=== PATIENT | female | born 1995 | race Two or more races ===

== ENCOUNTER 2017-03-22 16:47 | Emergency (ER) | payer SELFPAY ==
[~2017-03-22] VITALS: Ht 157.5 cm; Wt 62.1 kg
[2017-03-22 17:14] VITALS: BP 120/67
[2017-03-22] MEDS ORDERED: HYDROCORTISONE ACETATE 25 MG SUPP.RECT PR STA (17:26)
[2017-03-22] MEDS ORDERED: DEXAMETHASONE SOD PHOS 20 MG/5 ML VIAL. IM ONE (17:30)
[2017-03-22] MEDS ORDERED: KETOROLAC TROMETHAMINE 60 MG/2 ML INJ. IM ONE (17:30)
[2017-03-22] MEDS ORDERED: LIDO30CR TP (18:24)
[2017-03-22] MEDS ORDERED: POLY17PO29 PO (18:24)
[2017-03-22] MEDS ORDERED: HYDR30CR61 TP (18:24)
--- NOTE | 2017-03-22 18:24 | PHYS DOC ---
Past Medical History Past Medical History: No Pertinent History Past Surgical History: No Surgical History Alcohol Use: None Drug Use: None Adult General Chief Complaint Chief Complaint: HEMORRHOIDS HPI HPI Patient is a 21 year old female with history of hemorrhoids who presents today with external hemorrhoids for 2 weeks. Patient also states she has history of constipation. She does not take anything for her constipation. Patient states she has tried multiple [id number] medications for hemorrhoids with no relief. Patient states once in a while when she wipes herself she notes blood on the toilet paper. Patient denies any abdominal pain. Review of Systems Review of Systems Constitutional: Denies fever or chills [] Eyes: Denies change in visual acuity, redness, or eye pain [] HENT: Denies nasal congestion or sore throat [] Respiratory: Denies cough or shortness of breath [] Cardiovascular: No additional information not addressed in HPI [] GI: Hemorrhoids and constipation : Denies dysuria or hematuria [] Musculoskeletal: Denies back pain or joint pain [] Integument: Denies rash or skin lesions [] Neurologic: Denies headache, focal weakness or sensory changes [] Endocrine: Denies polyuria or polydipsia [] Current Medications Current Medications Current Medications Medications (Trade) Dose Ordered Sig/George Start Time Stop Time Status Last Admin Dose Admin Dexamethasone Sodium Phosphate (Decadron) 10 mg 1X ONCE 03/22/17 17:30 03/22/17 17:31 DC 03/22/17 17:38 10 MG Hydrocortisone Acetate (Anucort-Hc) 25 mg 1X STAT 03/22/17 17:26 03/22/17 17:30 DC 03/22/17 17:37 25 MG Ketorolac Tromethamine (Toradol Im) 60 mg 1X ONCE 03/22/17 17:30 03/22/17 17:31 DC 03/22/17 17:38 60 MG Lidocaine HCl (Glydo (Lidocaine) Jelly) 1 vicente 1X ONCE 03/22/17 18:30 03/22/17 18:31 Allergies Allergies Allergies Coded Allergies Type Severity Reaction Last Updated Verified No Known Drug Allergies 03/22/17 No Physical Exam Physical Exam Constitutional: Well developed, well nourished, no acute distress, non-toxic appearance. [] HENT: Normocephalic, atraumatic, bilateral external ears normal, oropharynx moist, no oral exudates, nose normal. [] Eyes: PERRLA, EOMI, conjunctiva normal, no discharge. [] Neck: Normal range of motion, no tenderness, supple, no stridor. [] Cardiovascular:Heart rate regular rhythm, no murmur [] Lungs & Thorax: Bilateral breath sounds clear to auscultation [] Abdomen: Bowel sounds normal, soft, no tenderness, no masses, no pulsatile masses. [] Rectal exam External rectum has 2 peanut size nonthrombosed hemorrhoids. Unable to do internal rectal exam because patient is very uncomfortable. Skin: Warm, dry, no erythema, no rash. [] Back: No tenderness, no CVA tenderness. [] Extremities: No tenderness, no cyanosis, no clubbing, ROM intact, no edema. [] Neurologic: Alert and oriented X 3, normal motor function, normal sensory function, no focal deficits noted. [] Psychologic: Affect normal, judgement normal, mood normal. [] Current Patient Data Vital Signs Vital Signs Date Time Temp Pulse Resp B/P (MAP) Pulse Ox O2 Delivery O2 Flow Rate FiO2 03/22/17 17:14 97.7 77 18 98 Room Air 97.7 EKG EKG [] Radiology/Procedures Radiology/Procedures [] Course & Med Decision Making Course & Med Decision Making Pertinent Labs and Imaging studies reviewed. (See chart for details) Patient is in the ED with external hemorrhoids and constipation. She has tried over the counter medications for hemorrhoids with no relief. She was given Toradol and Decadron in the ED. She was informed we will not give her any narcotics because they increase the risk of constipation worsen hemorrhoids. She was discharged with lidocaine cream. She was also discharged with MiraLAX and educated on the relationship of constipation and hemorrhoids. The provided eye general surgeon for follow-up. She was provided return precautions and discharged in stable condition. Dragon Disclaimer Dragon Disclaimer This electronic medical record was generated, in whole or in part, using a voice recognition dictation system. Departure Departure Impression: Primary Impression: External hemorrhoids Additional Impression: Constipation Disposition: HOME, SELF-CARE Condition: STABLE Referrals: NO PCP (PCP) DAGOBERTO WELLS MD Call the provided general surgeon and see if he can help you with hemorrhoids Patient Instructions: Constipation, Adult, [id number], Hemorrhoids, Easy-to- Read Additional Instructions: You were seen for hemorrhoids and constipation. Constipation is one of the major causes for hemorrhoids. Try and increase your dietary fiber intake, increase your water intake to 64 ounces a day. Take MiraLAX every day to prevent constipation. Follow-up with the provided general surgeon and see if he can help you with the hemorrhoids. Scripts Polyethylene Glycol 3350 (MIRALAX) 17 Gm Powd.pack 1 PACKET PO DAILY, #30 PACKET 3 Refills Prov: BALDOMERO DWYER APRN 03/22/17 Hydrocortisone (ANUSOL-HC) 30 Gm Cream..g. 1 VICENTE TP BID, #30 GM 1 Refill Prov: BALDOMERO DWYER APRN 03/22/17 Lidocaine/Prilocaine (LIDOCAINE-PRILOCAINE CREAM) 30 Gm Cream..g. 1 VICENTE TP UD, #30 GM 1 Refill Prov: BALDOMERO DWYER APRN 03/22/17 Problem Qualifiers Additional Impression: Constipation Constipation type: unspecified constipation type Qualified Codes: K59.00 - Constipation, unspecified BALDOMERO DWYER APRN March 22, 2017 18:24
[2017-03-22] MEDS ORDERED: LIDOCAINE 2% JELLY 6ML IN APPLICATOR. MM ONE (18:30)
== END 2017-03-22 18:34 | disposition home or self-care (01) ==
LOC: ER 16:47
DX: K64.4 Residual hemorrhoidal skin tags (principal); K59.00 Constipation, unspecified
CPT/HCPCS: 96372; 99284; J1100; J1885; 81025; 84703